=== PATIENT | female | born 1975 | race Hispanic/Latino ===

== ENCOUNTER → 2018-10-24 | Outpatient (CLI) | payer BC ==
--- NOTE | 2018-10-24 11:39 | PCM.EKG ---
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
== END | disposition home or self-care (01) ==
LOC: RT 11:25
PROVIDERS: ATTEND Internal Medicine
DX: I10 Essential (primary) hypertension (principal); Z82.49 Family history of ischemic heart disease and other diseases of the circulatory system
CPT/HCPCS: 93005